=== PATIENT | male | born 1995 | race Hispanic/Latino ===

== ENCOUNTER 2017-12-21 22:26 | Emergency (ER) | payer BC ==
[~2017-12-21] VITALS: Ht 185.4 cm; Wt 99.8 kg
--- NOTE | 2017-12-22 01:00 | Diagnostic Imaging Report ---
EXAMINATION: CHEST 2 VIEWS INDICATION: Chest pain COMPARISON: None FINDINGS: TUBES and LINES: None. LUNGS: Lungs are well inflated. Lungs are clear. There is no evidence of pneumonia or pulmonary edema. PLEURA: No pleural effusion or pneumothorax. HEART AND MEDIASTINUM: The cardiomediastinal silhouette is unremarkable. BONES AND SOFT TISSUES: No acute osseous lesion. Soft tissues are unremarkable. UPPER ABDOMEN: No free air under the diaphragm. IMPRESSION: No acute thoracic abnormality. Signed by: Dr. Naeem Burnette M.D. on 12/22/2017 12:57 AM
== END 2017-12-22 02:51 | disposition home or self-care (01) ==
LOC: ER 22:26
DX: R07.89 Other chest pain (principal)
CPT/HCPCS: 71046; 93005; 99283